=== PATIENT | male | born 1930 | race Caucasian/White ===

== ENCOUNTER 2017-09-13 12:41 | Inpatient (IN) | payer MEDICARE, OTHER ==
[~2017-09-13] VITALS: Ht 177.8 cm; Wt 86.2 kg
[2017-09-13 13:29] LABS: BASOPHILS % (AUTO) 0.3 % (0.0-5.0); EOSINOPHILS % (AUTO) 0.1 % (0.0-8.0); HEMATOCRIT 31.4 % (42-54); LYMPHOCYTES % (AUTO) 11.2 % (21.0-51.0); MEAN CORPUSCULAR HEMOGLOBIN 31.3 pg (27.0-33.0); MEAN CORPUSCULAR HGB CONC 34.8 g/dL (32.0-36.0); MEAN CORPUSCULAR VOLUME 90.2 fL (79-99); MONOCYTES % (AUTO) 9.3 % (3.0-13.0); NEUTROPHILS % (AUTO) 79.1 % (40.0-77.0); PLATELET COUNT (AUTO) 163 K/uL (130-400); RED BLOOD CELL COUNT(AUTO) 3.49 MIL/uL (4.50-6.20); RED CELL DISTRIBUTION WIDTH 13.3 % (11.0-15.5)
[2017-09-13 13:39] LABS: INR 1.82 (0.85-1.15); PARTIAL THROMBOPLASTIN TIME 43.8 SEC (26.3-35.5); PROTHROMBIN TIME 18.9 SEC (9.6-11.6)
[2017-09-13] MEDS ORDERED: MEROPENEM 1 GM VIAL ONE (13:40)
[2017-09-13 13:41] LABS: POTASSIUM 4.2 mmol/L (3.5-5.1)
[2017-09-13] MEDS ORDERED: IPRATROPIUM/ALBUTEROL SULFATE 3 ML SOLUTION IH ONE ×3 (13:52→21:56)
[2017-09-13 13:53] LABS: ALBUMIN 2.9 g/dL (3.5-5.0); CREATINE KINASE MB 1.1 ng/mL (0.5-3.6); TOTAL PROTEIN, SERUM 6.5 g/dL (6.0-8.3); TROPONIN I 0.22 ng/mL (0.00-0.06)
[2017-09-13 14:53] LABS: APPEARANCE,URINE Clear (CLEAR); BILIRUBIN,URINE Negative (NEGATIVE); COLOR,URINE Dark Yellow (YELLOW); GLUCOSE, URINE (UA) Negative (NEGATIVE); KETONES,URINE Negative (NEGATIVE); LEUKOCYTE ESTERASE ,URINE Negative (NEGATIVE); NITRATE,URINE Negative (NEGATIVE); OCCULT BLOOD,URINE Moderate (NEGATIVE); PROTEIN,URINE Trace (NEGATIVE)
[2017-09-13 15:09] LABS: BACTERIA,URINE Few /HPF (None Seen); WBC,URINE 0-1 /HPF (0-1)
[2017-09-13 15:10] LABS: MUCUS,URINE Few LPF (None Seen); SQUAMOUS EPITHELIAL CELL,UR Rare /LPF (0-2)
[2017-09-13 18:50] VITALS: BP 160/91
[2017-09-13] MEDS ORDERED: ONDANSETRON HCL 4 MG/2 ML VIAL IV PRN (21:15)
[2017-09-13] MEDS ORDERED: LACTULOSE 20 GM/30 ML UDCUP PO PRN (21:15)
[2017-09-13] MEDS ORDERED: GUAIFENESIN-DM 200/20 MG 10 ML PO PRN (21:15)
[2017-09-13] MEDS ORDERED: MORPHINE SULFATE 2 MG/ML 1ML SYG IV PRN (21:15)
[2017-09-13] MEDS ORDERED: HYDRALAZINE HCL 20 MG/ML VIAL IV PRN (21:15)
[2017-09-13] MEDS ORDERED: CEFTRIAXONE 1GM/D5W 50ML 50 ML IV SCH (23:00)
[2017-09-13] MEDS ORDERED: CEFTRIAXONE SODIUM 1 GM ONE (23:18)
[2017-09-13] MEDS: AZITHROMYCIN 500MG+NS 250ML 250 ML IV SCH (23:19)
[2017-09-13] MEDS: IPRATROPIUM/ALBUTEROL SULFATE 3 ML SOLUTION IH SCH (23:37)
[2017-09-14 03:25] VITALS: BP 127/81
[2017-09-14 04:15] LABS: BASOPHILS % (AUTO) 0.7 % (0.0-5.0); EOSINOPHILS % (AUTO) 0.3 % (0.0-8.0); HEMATOCRIT 29.2 % (42-54); LYMPHOCYTES % (AUTO) 15.3 % (21.0-51.0); MEAN CORPUSCULAR HEMOGLOBIN 30.2 pg (27.0-33.0); MEAN CORPUSCULAR HGB CONC 33.6 g/dL (32.0-36.0); MEAN CORPUSCULAR VOLUME 89.8 fL (79-99); MONOCYTES % (AUTO) 11.5 % (3.0-13.0); NEUTROPHILS % (AUTO) 72.2 % (40.0-77.0); PLATELET COUNT (AUTO) 140 K/uL (130-400); RED BLOOD CELL COUNT(AUTO) 3.26 MIL/uL (4.50-6.20); RED CELL DISTRIBUTION WIDTH 13.4 % (11.0-15.5); WHITE BLOOD COUNT (AUTO) 4.2 K/uL (4.8-10.8)
[2017-09-14 04:29] LABS: CREATININE 0.9 mg/dL (0.5-1.5)
[2017-09-14] MEDS ORDERED: OMEP20TA25 PO (04:37)
[2017-09-14] MEDS ORDERED: TROS20TA4 PO (04:38)
[2017-09-14] MEDS ORDERED: GUAI5SYR PO (04:40)
[2017-09-14] MEDS ORDERED: METO25TA6 PO (04:45)
[2017-09-14] MEDS ORDERED: FINA5TAB41 PO (04:46)
[2017-09-14] MEDS ORDERED: TAMS0.4C32 PO (04:47)
[2017-09-14] MEDS ORDERED: METH500T6 PO (04:48)
[2017-09-14] MEDS ORDERED: ROPI1TAB11 PO (04:49)
[2017-09-14] MEDS ORDERED: SIMV80TA5 PO (04:50)
[2017-09-14] MEDS ORDERED: SODIUM CHLORIDE 3% FOR INHALATION 4 ML/AMP VIAL.NEB IH ONE (06:09)
[2017-09-14] MEDS: IPRATROPIUM/ALBUTEROL SULFATE 3 ML SOLUTION IH SCH ×3 (06:30→18:02)
[2017-09-14 07:00] VITALS: BP 140/91
[2017-09-14] MEDS: FAMOTIDINE 20MG TAB 20 MG TAB PO SCH ×2 (09:36→22:41)
[2017-09-14] MEDS: BENZONATATE 100 MG CAPSULE PO SCH ×3 (09:36→22:41)
[2017-09-14] MEDS: ENOXAPARIN SODIUM 40 MG/0.4 ML SYRINGE SQ SCH (09:38)
[2017-09-14] MEDS ORDERED: GUAIFENESIN-DM 200/20 MG 10 ML PO SCH (10:00)
[2017-09-14] MEDS ORDERED: ACETAMINOPHEN 325 MG TAB PO PRN (10:45)
[2017-09-14 11:00] VITALS: BP 143/88
[2017-09-14] MEDS: CEFTRIAXONE SODIUM 1 GM IVP SCH (14:39)
[2017-09-14 15:57] VITALS: BP 132/86
[2017-09-14 19:20] VITALS: BP 138/75
[2017-09-14] MEDS: AZITHROMYCIN 500MG+NS 250ML 250 ML IV SCH (22:41)
[2017-09-14] MEDS: METOPROLOL TARTRATE 25 MG TAB PO SCH (22:41)
[2017-09-14] MEDS: FINASTERIDE 5 MG TABLET PO SCH (22:41)
[2017-09-14] MEDS: TAMSULOSIN HCL 0.4 MG CAP.ER.24H PO SCH (22:41)
[2017-09-14] MEDS: ROPINIROLE HCL 1 MG TABLET PO SCH (22:42)
[2017-09-14] MEDS: CYCLOBENZAPRINE HCL 10 MG TABLET PO SCH (22:45)
[2017-09-14 23:05] VITALS: BP 131/69
[2017-09-15] MEDS: IPRATROPIUM/ALBUTEROL SULFATE 3 ML SOLUTION IH SCH ×5 (00:46→19:34)
[2017-09-15 03:05] VITALS: BP 122/65
[2017-09-15 05:40] LABS: BASOPHILS % (AUTO) 0.3 % (0.0-5.0); EOSINOPHILS % (AUTO) 0.9 % (0.0-8.0); HEMATOCRIT 31.1 % (42-54); LYMPHOCYTES % (AUTO) 15.2 % (21.0-51.0); MEAN CORPUSCULAR HGB CONC 34.6 g/dL (32.0-36.0); MEAN CORPUSCULAR VOLUME 89.6 fL (79-99); NEUTROPHILS % (AUTO) 73.6 % (40.0-77.0); PLATELET COUNT (AUTO) 157 K/uL (130-400); RED BLOOD CELL COUNT(AUTO) 3.47 MIL/uL (4.50-6.20); RED CELL DISTRIBUTION WIDTH 13.7 % (11.0-15.5); WHITE BLOOD COUNT (AUTO) 4.2 K/uL (4.8-10.8)
[2017-09-15 05:50] LABS: CREATININE 0.9 mg/dL (0.5-1.5); POTASSIUM 3.9 mmol/L (3.5-5.1)
[2017-09-15 08:35] VITALS: BP 134/88
[2017-09-15] MEDS: METOPROLOL TARTRATE 25 MG TAB PO SCH ×2 (09:13→20:46)
[2017-09-15] MEDS: BENZONATATE 100 MG CAPSULE PO SCH ×3 (09:13→20:46)
[2017-09-15] MEDS: PANTOPRAZOLE SODIUM 40 MG TABLET.DR PO SCH (09:13)
[2017-09-15] MEDS: FAMOTIDINE 20MG TAB 20 MG TAB PO SCH ×2 (09:14→20:46)
[2017-09-15] MEDS: ENOXAPARIN SODIUM 40 MG/0.4 ML SYRINGE SQ SCH (09:14)
[2017-09-15] MEDS: ATORVASTATIN CALCIUM 20 MG TABLET PO SCH ×2 (10:03→16:52)
[2017-09-15] MEDS: CYCLOBENZAPRINE HCL 10 MG TABLET PO SCH ×2 (10:04→20:46)
[2017-09-15 12:00] VITALS: BP 144/85
[2017-09-15] MEDS: CEFTRIAXONE SODIUM 1 GM IVP SCH (13:25)
[2017-09-15 16:00] VITALS: BP 139/85
[2017-09-15] MEDS: FINASTERIDE 5 MG TABLET PO SCH (16:52)
[2017-09-15] MEDS: ROPINIROLE HCL 1 MG TABLET PO SCH (16:52)
[2017-09-15] MEDS: TAMSULOSIN HCL 0.4 MG CAP.ER.24H PO SCH (16:53)
[2017-09-15 19:20] VITALS: BP 141/79
[2017-09-15] MEDS: LORAZEPAM 2 MG/ML 1 ML VIAL IM PRN (21:30)
[2017-09-16] MEDS: IPRATROPIUM/ALBUTEROL SULFATE 3 ML SOLUTION IH SCH ×4 (00:28→18:32)
[2017-09-16] MEDS: AZITHROMYCIN 500MG+NS 250ML 250 ML IV SCH (00:29)
[2017-09-16 03:20] VITALS: BP 138/83
[2017-09-16 05:03] LABS: BASOPHILS % (AUTO) 0.6 % (0.0-5.0); EOSINOPHILS % (AUTO) 2.8 % (0.0-8.0); HEMATOCRIT 29.1 % (42-54); LYMPHOCYTES % (AUTO) 19.6 % (21.0-51.0); MEAN CORPUSCULAR HEMOGLOBIN 31.4 pg (27.0-33.0); MEAN CORPUSCULAR HGB CONC 35.4 g/dL (32.0-36.0); MEAN CORPUSCULAR VOLUME 88.7 fL (79-99); MONOCYTES % (AUTO) 13.8 % (3.0-13.0); NEUTROPHILS % (AUTO) 63.2 % (40.0-77.0); PLATELET COUNT (AUTO) 166 K/uL (130-400); RED BLOOD CELL COUNT(AUTO) 3.28 MIL/uL (4.50-6.20); RED CELL DISTRIBUTION WIDTH 13.3 % (11.0-15.5); WHITE BLOOD COUNT (AUTO) 4.3 K/uL (4.8-10.8)
[2017-09-16 05:12] LABS: CREATININE 0.9 mg/dL (0.5-1.5); POTASSIUM 3.8 mmol/L (3.5-5.1)
[2017-09-16 08:00] VITALS: BP 141/79
[2017-09-16] MEDS: BENZONATATE 100 MG CAPSULE PO SCH ×3 (09:34→20:45)
[2017-09-16] MEDS: FAMOTIDINE 20MG TAB 20 MG TAB PO SCH ×2 (09:34→20:45)
[2017-09-16] MEDS: CYCLOBENZAPRINE HCL 10 MG TABLET PO SCH (09:34)
[2017-09-16] MEDS: PANTOPRAZOLE SODIUM 40 MG TABLET.DR PO SCH (09:35)
[2017-09-16] MEDS: METOPROLOL TARTRATE 25 MG TAB PO SCH ×2 (09:35→20:46)
[2017-09-16] MEDS: ENOXAPARIN SODIUM 40 MG/0.4 ML SYRINGE SQ SCH (09:36)
[2017-09-16] MEDS ORDERED: ROPINIROLE HCL 1 MG TABLET PO PRN (11:00)
[2017-09-16] MEDS ORDERED: CYCLOBENZAPRINE HCL 10 MG TABLET PO PRN (11:00)
[2017-09-16 12:00] VITALS: BP 140/81
[2017-09-16] MEDS ORDERED: WATER FOR INJECTION,STERILE 20 ML VIAL ONE (12:49)
[2017-09-16] MEDS: CEFTRIAXONE SODIUM 1 GM IVP SCH (13:04)
[2017-09-16 16:39] VITALS: BP 138/89
[2017-09-16] MEDS: FINASTERIDE 5 MG TABLET PO SCH (18:02)
[2017-09-16] MEDS: ATORVASTATIN CALCIUM 20 MG TABLET PO SCH (18:02)
[2017-09-16] MEDS: TAMSULOSIN HCL 0.4 MG CAP.ER.24H PO SCH (18:02)
[2017-09-16 19:58] VITALS: BP 136/90
[2017-09-16] MEDS: LORAZEPAM 2 MG/ML 1 ML VIAL IM PRN (20:46)
[2017-09-17] MEDS: IPRATROPIUM/ALBUTEROL SULFATE 3 ML SOLUTION IH SCH ×2 (00:06→06:40)
[2017-09-17] MEDS ORDERED: OLANZAPINE 10MG/ML 1ML VIAL IM ONE (00:23)
[2017-09-17] MEDS: OLANZAPINE 10MG/ML 1ML VIAL IM PRN (00:29)
[2017-09-17] MEDS: AZITHROMYCIN 500MG+NS 250ML 250 ML IV SCH (02:52)
[2017-09-17] MEDS: LORAZEPAM 2 MG/ML 1 ML VIAL IM PRN (03:11)
[2017-09-17] MEDS: PANTOPRAZOLE SODIUM 40 MG TABLET.DR PO SCH (07:30)
[2017-09-17 08:00] VITALS: BP 147/85
[2017-09-17] MEDS: METOPROLOL TARTRATE 25 MG TAB PO SCH ×3 (09:00→21:53)
[2017-09-17] MEDS: FAMOTIDINE 20MG TAB 20 MG TAB PO SCH ×3 (09:00→21:52)
[2017-09-17] MEDS: BENZONATATE 100 MG CAPSULE PO SCH ×4 (09:00→21:53)
[2017-09-17 11:00] VITALS: BP 157/76
[2017-09-17] MEDS ORDERED: ALBUTEROL SULFATE 0.083% 2.5 MG/3 ML INH IH PRN ×2 (11:00→12:00)
[2017-09-17] MEDS: ALBUTEROL SULFATE 0.083% 2.5 MG/3 ML INH IH SCH ×3 (12:00→23:34)
[2017-09-17] MEDS: CEFTRIAXONE SODIUM 1 GM IVP SCH (13:27)
[2017-09-17] MEDS: ENOXAPARIN SODIUM 40 MG/0.4 ML SYRINGE SQ SCH (13:28)
[2017-09-17] MEDS: METHYLPREDNISOLONE SOD SUCC 40MG/ML 1ML IVP SCH ×2 (13:28→21:53)
[2017-09-17 16:00] VITALS: BP 165/108
[2017-09-17] MEDS: FINASTERIDE 5 MG TABLET PO SCH (17:00)
[2017-09-17] MEDS: TAMSULOSIN HCL 0.4 MG CAP.ER.24H PO SCH (17:00)
[2017-09-17] MEDS: ATORVASTATIN CALCIUM 20 MG TABLET PO SCH (17:00)
[2017-09-17 19:45] VITALS: BP 143/96
[2017-09-17 23:20] VITALS: BP 137/84
[2017-09-18] MEDS: AZITHROMYCIN 500MG+NS 250ML 250 ML IV SCH ×2 (01:15→23:20)
[2017-09-18 03:10] VITALS: BP 141/67
[2017-09-18] MEDS: METHYLPREDNISOLONE SOD SUCC 40MG/ML 1ML IVP SCH ×3 (04:54→18:31)
[2017-09-18] MEDS: ALBUTEROL SULFATE 0.083% 2.5 MG/3 ML INH IH SCH ×4 (07:15→23:25)
[2017-09-18 08:00] VITALS: BP 131/73
[2017-09-18] MEDS: BENZONATATE 100 MG CAPSULE PO SCH ×3 (09:56→23:20)
[2017-09-18] MEDS: PANTOPRAZOLE SODIUM 40 MG TABLET.DR PO SCH (09:56)
[2017-09-18] MEDS: METOPROLOL TARTRATE 25 MG TAB PO SCH ×2 (09:56→23:20)
[2017-09-18] MEDS: FAMOTIDINE 20MG TAB 20 MG TAB PO SCH ×2 (09:56→23:20)
[2017-09-18] MEDS: ENOXAPARIN SODIUM 40 MG/0.4 ML SYRINGE SQ SCH (09:57)
[2017-09-18 11:00] VITALS: BP 144/80
[2017-09-18] MEDS: CEFTRIAXONE SODIUM 1 GM IVP SCH (13:13)
[2017-09-18 16:00] VITALS: BP 158/82
[2017-09-18] MEDS: TAMSULOSIN HCL 0.4 MG CAP.ER.24H PO SCH (17:29)
[2017-09-18] MEDS: ATORVASTATIN CALCIUM 20 MG TABLET PO SCH (17:29)
[2017-09-18] MEDS: FINASTERIDE 5 MG TABLET PO SCH (17:29)
[2017-09-18 19:35] VITALS: BP 136/91
[2017-09-18 23:50] VITALS: BP 142/79
[2017-09-19] MEDS ORDERED: OLANZAPINE 10MG/ML 1ML VIAL IM ONE (01:38)
[2017-09-19] MEDS: METHYLPREDNISOLONE SOD SUCC 40MG/ML 1ML IVP SCH (01:43)
[2017-09-19] MEDS: OLANZAPINE 10MG/ML 1ML VIAL IM PRN (01:43)
[2017-09-19 06:24] VITALS: BP 160/94
[2017-09-19] MEDS: ALBUTEROL SULFATE 0.083% 2.5 MG/3 ML INH IH SCH ×4 (06:59→23:57)
[2017-09-19 08:00] VITALS: BP 164/95
[2017-09-19] MEDS: BENZONATATE 100 MG CAPSULE PO SCH ×4 (08:18→20:30)
[2017-09-19] MEDS: OSELTAMIVIR PHOSPHATE 75 MG CAP PO SCH (08:19)
[2017-09-19] MEDS: ENOXAPARIN SODIUM 40 MG/0.4 ML SYRINGE SQ SCH (08:19)
[2017-09-19] MEDS: METOPROLOL TARTRATE 25 MG TAB PO SCH ×2 (08:19→20:30)
[2017-09-19] MEDS: PANTOPRAZOLE SODIUM 40 MG TABLET.DR PO SCH (08:19)
[2017-09-19] MEDS: FAMOTIDINE 20MG TAB 20 MG TAB PO SCH ×2 (08:19→20:30)
[2017-09-19 11:00] VITALS: BP 128/75
[2017-09-19] MEDS: CEFTRIAXONE SODIUM 1 GM IVP SCH (13:09)
[2017-09-19] MEDS: LORAZEPAM 2 MG/ML 1 ML VIAL IM PRN (14:47)
[2017-09-19 16:00] VITALS: BP 158/70
[2017-09-19] MEDS: TAMSULOSIN HCL 0.4 MG CAP.ER.24H PO SCH (18:56)
[2017-09-19] MEDS: ATORVASTATIN CALCIUM 20 MG TABLET PO SCH (18:56)
[2017-09-19] MEDS: FINASTERIDE 5 MG TABLET PO SCH (18:56)
[2017-09-19 19:00] VITALS: BP 153/83
[2017-09-19 23:00] VITALS: BP 103/51
[2017-09-19] MEDS: AZITHROMYCIN 500MG+NS 250ML 250 ML IV SCH (23:23)
[2017-09-20 03:00] VITALS: BP 114/85
[2017-09-20 03:46] LABS: HEMATOCRIT 34.8 % (42-54); MEAN CORPUSCULAR HEMOGLOBIN 29.9 pg (27.0-33.0); MEAN CORPUSCULAR HGB CONC 33.6 g/dL (32.0-36.0); MEAN CORPUSCULAR VOLUME 89.2 fL (79-99); PLATELET COUNT (AUTO) 217 K/uL (130-400); RED CELL DISTRIBUTION WIDTH 13.5 % (11.0-15.5); WHITE BLOOD COUNT (AUTO) 11.5 K/uL (4.8-10.8)
[2017-09-20 03:51] LABS: INR 1.3 (0.85-1.15); PARTIAL THROMBOPLASTIN TIME 29.6 SEC (26.3-35.5); PROTHROMBIN TIME 13.6 SEC (9.6-11.6)
[2017-09-20 03:59] LABS: ALBUMIN 2.9 g/dL (3.5-5.0); BILIRUBIN,TOTAL 0.7 mg/dL (0.2-1.0); POTASSIUM 4.1 mmol/L (3.5-5.1); TOTAL PROTEIN, SERUM 6.4 g/dL (6.0-8.3)
[2017-09-20] MEDS: ALBUTEROL SULFATE 0.083% 2.5 MG/3 ML INH IH SCH ×3 (05:28→16:58)
[2017-09-20] MEDS: PANTOPRAZOLE SODIUM 40 MG TABLET.DR PO SCH (06:33)
[2017-09-20 07:00] VITALS: BP 144/92
[2017-09-20] MEDS: BENZONATATE 100 MG CAPSULE PO SCH ×3 (09:29→20:08)
[2017-09-20] MEDS: METOPROLOL TARTRATE 25 MG TAB PO SCH ×2 (09:29→20:08)
[2017-09-20] MEDS: FAMOTIDINE 20MG TAB 20 MG TAB PO SCH ×2 (09:29→20:08)
[2017-09-20] MEDS: ENOXAPARIN SODIUM 40 MG/0.4 ML SYRINGE SQ SCH (09:30)
[2017-09-20] MEDS: OSELTAMIVIR PHOSPHATE 75 MG CAP PO SCH (09:30)
[2017-09-20 11:07] VITALS: BP 117/54
[2017-09-20] MEDS: PREDNISONE 10 MG TABLET PO SCH (12:38)
[2017-09-20] MEDS: CEFTRIAXONE SODIUM 1 GM IVP SCH (12:41)
[2017-09-20 15:00] VITALS: BP 128/92
[2017-09-20] MEDS: FINASTERIDE 5 MG TABLET PO SCH (16:49)
[2017-09-20] MEDS: WARFARIN SODIUM 2.5 MG TAB PO SCH (16:49)
[2017-09-20] MEDS: TAMSULOSIN HCL 0.4 MG CAP.ER.24H PO SCH (16:49)
[2017-09-20] MEDS: ATORVASTATIN CALCIUM 20 MG TABLET PO SCH (16:50)
[2017-09-20 20:00] VITALS: BP 142/90
[2017-09-21] VITALS: BP 142/64
[2017-09-21] MEDS: ALBUTEROL SULFATE 0.083% 2.5 MG/3 ML INH IH SCH ×3 (00:22→19:16)
[2017-09-21 04:00] VITALS: BP 145/89
[2017-09-21 06:28] LABS: BASOPHILS % (AUTO) 0.3 % (0.0-5.0); EOSINOPHILS % (AUTO) 0.2 % (0.0-8.0); HEMATOCRIT 33.3 % (42-54); LYMPHOCYTES % (AUTO) 11.1 % (21.0-51.0); MEAN CORPUSCULAR HEMOGLOBIN 30.2 pg (27.0-33.0); MEAN CORPUSCULAR VOLUME 88.7 fL (79-99); MONOCYTES % (AUTO) 8.3 % (3.0-13.0); NEUTROPHILS % (AUTO) 80.1 % (40.0-77.0); PLATELET COUNT (AUTO) 210 K/uL (130-400); RED BLOOD CELL COUNT(AUTO) 3.75 MIL/uL (4.50-6.20); RED CELL DISTRIBUTION WIDTH 13.4 % (11.0-15.5); WHITE BLOOD COUNT (AUTO) 9.4 K/uL (4.8-10.8)
[2017-09-21] MEDS: PANTOPRAZOLE SODIUM 40 MG TABLET.DR PO SCH (06:33)
[2017-09-21 06:36] LABS: CREATININE 0.9 mg/dL (0.5-1.5); INR 1.15 (0.85-1.15); PARTIAL THROMBOPLASTIN TIME 28.5 SEC (26.3-35.5); POTASSIUM 4.2 mmol/L (3.5-5.1)
[2017-09-21 07:30] VITALS: BP 137/88
[2017-09-21] MEDS: FAMOTIDINE 20MG TAB 20 MG TAB PO SCH ×2 (09:30→20:10)
[2017-09-21] MEDS: PREDNISONE 10 MG TABLET PO SCH (09:30)
[2017-09-21] MEDS: METOPROLOL TARTRATE 25 MG TAB PO SCH ×2 (09:30→20:10)
[2017-09-21] MEDS: ENOXAPARIN SODIUM 40 MG/0.4 ML SYRINGE SQ SCH (09:31)
[2017-09-21] MEDS: BENZONATATE 100 MG CAPSULE PO SCH ×3 (09:31→20:10)
[2017-09-21] MEDS: OSELTAMIVIR PHOSPHATE 75 MG CAP PO SCH (09:31)
[2017-09-21 10:58] VITALS: BP 131/68
[2017-09-21] MEDS: CEFTRIAXONE SODIUM 1 GM IVP SCH (13:05)
[2017-09-21 15:35] VITALS: BP 138/85
[2017-09-21] MEDS: FINASTERIDE 5 MG TABLET PO SCH (17:37)
[2017-09-21] MEDS: TAMSULOSIN HCL 0.4 MG CAP.ER.24H PO SCH (17:37)
[2017-09-21] MEDS: ATORVASTATIN CALCIUM 20 MG TABLET PO SCH (17:38)
[2017-09-21] MEDS: WARFARIN SODIUM 2.5 MG TAB PO SCH (17:38)
[2017-09-22] MEDS: ALBUTEROL SULFATE 0.083% 2.5 MG/3 ML INH IH SCH ×3 (06:00→11:38)
[2017-09-22 06:38] VITALS: BP 142/96
[2017-09-22 06:55] LABS: INR 1.2 (0.85-1.15); PARTIAL THROMBOPLASTIN TIME 28.1 SEC (26.3-35.5); PROTHROMBIN TIME 12.6 SEC (9.6-11.6)
[2017-09-22 08:00] VITALS: BP 139/90
[2017-09-22] MEDS: FAMOTIDINE 20MG TAB 20 MG TAB PO SCH (09:18)
[2017-09-22] MEDS: OSELTAMIVIR PHOSPHATE 75 MG CAP PO SCH (09:18)
[2017-09-22] MEDS: METOPROLOL TARTRATE 25 MG TAB PO SCH (09:18)
[2017-09-22] MEDS: PREDNISONE 10 MG TABLET PO SCH (09:18)
[2017-09-22] MEDS: BENZONATATE 100 MG CAPSULE PO SCH ×2 (09:18→14:49)
[2017-09-22] MEDS: ENOXAPARIN SODIUM 40 MG/0.4 ML SYRINGE SQ SCH (09:19)
[2017-09-22] MEDS: PANTOPRAZOLE SODIUM 40 MG TABLET.DR PO SCH (09:28)
[2017-09-22 11:00] VITALS: BP 129/95
[2017-09-22] MEDS: CEFTRIAXONE SODIUM 1 GM IVP SCH (12:59)
[2017-09-22] MEDS ORDERED: WARF2.5T47 PO (14:45)
[2017-09-22] MEDS ORDERED: OLAN2.5T3 PO (14:45)
[2017-09-22] MEDS ORDERED: ALBU2.5V2 IH (14:45)
[2017-09-22] MEDS ORDERED: ROPI1TAB38 PO (14:45)
[2017-09-22] MEDS ORDERED: OSEL75 PO (14:45)
[2017-09-22] MEDS ORDERED: CEFD300C3 PO (14:45)
[2017-09-22 16:00] VITALS: BP 146/95
[2017-09-22] MEDS: ATORVASTATIN CALCIUM 20 MG TABLET PO SCH (16:59)
[2017-09-22] MEDS: TAMSULOSIN HCL 0.4 MG CAP.ER.24H PO SCH (16:59)
[2017-09-22] MEDS: FINASTERIDE 5 MG TABLET PO SCH (16:59)
[2017-09-22] MEDS: WARFARIN SODIUM 2.5 MG TAB PO SCH (17:01)
== END 2017-09-22 18:25 | disposition home or self-care (01) | DRG 177 ==
LOC: EDH 12:41 → EDHIP 15:34 → 3BH 18:13
PROVIDERS: ADMIT Family Medicine; ATTEND Family Medicine
DX: J69.0 Pneumonitis due to inhalation of food and vomit (principal); G92 Toxic encephalopathy; J96.21 Acute and chronic respiratory failure with hypoxia; R13.12 Dysphagia, oropharyngeal phase; G20 Parkinson's disease; I07.1 Rheumatic tricuspid insufficiency; I50.40 Unspecified combined systolic (congestive) and diastolic (congestive) heart failure; J44.0 Chronic obstructive pulmonary disease with (acute) lower respiratory infection; J44.1 Chronic obstructive pulmonary disease with (acute) exacerbation; I11.0 Hypertensive heart disease with heart failure; J84.10 Pulmonary fibrosis, unspecified; J11.00 Influenza due to unidentified influenza virus with unspecified type of pneumonia; I10 Essential (primary) hypertension; N40.0 Benign prostatic hyperplasia without lower urinary tract symptoms; E78.5 Hyperlipidemia, unspecified; I25.10 Atherosclerotic heart disease of native coronary artery without angina pectoris; I34.0 Nonrheumatic mitral (valve) insufficiency; I35.1 Nonrheumatic aortic (valve) insufficiency; J11.1 Influenza due to unidentified influenza virus with other respiratory manifestations; M19.90 Unspecified osteoarthritis, unspecified site; Z20.828 Contact with and (suspected) exposure to other viral communicable diseases; Z74.01 Bed confinement status; Z85.828 Personal history of other malignant neoplasm of skin; Z79.01 Long term (current) use of anticoagulants; Z91.81 History of falling
CPT/HCPCS: 31720; 36415; 70450; 71045; 71046; 71250; 74230; 80048; 80053; 81001; 82550; 82553; 82948; 83605; 83874; 84484; 85025; 85027; 85610; 85730; 87040; 87071; 87088; 87205; 87804; 92610; 92611; 93005; 93306; 94640; 94664; 97039; A4218; J0456; J0696; J1650; J2060; J2185; J2920; J3490; J7512